=== PATIENT | female | born 1945 | race Caucasian/White ===

== ENCOUNTER → 2016-11-18 | Outpatient (CLI) | payer MEDICARE, BC ==
[~2016-11-18] MED LIST: CALCIUM CITRATE1 TA4 PO; GLUCOSAMINE & C1 CA2 PO; HYZAAR 25 MG-101 TAB PO; LUTEIN20 M1 PO; MULTI VITAMINS1 TAB PO; NATURE'S BLEND400 IU; NORVASC2.5 MG PO; OMEGA-31 SGL PO; THE MEDICINE S200 M2 PO; VITAMIN C500 MG PO; ZYRTEC 10MG10 MG PO
== END ==
LOC: MC.RAD 08:52
DX: Z12.31 Encounter for screening mammogram for malignant neoplasm of breast (principal)

== ENCOUNTER → 2017-12-15 | Outpatient (CLI) | payer MEDICARE, BC | LOC: MC.RAD 14:33 | DX: Z12.31 Encounter for screening mammogram for malignant neoplasm of breast (principal) ==

== ENCOUNTER → 2018-12-28 | Outpatient (CLI) | payer MEDICARE, BC | LOC: MC.RAD 09:37 | DX: Z12.31 Encounter for screening mammogram for malignant neoplasm of breast (principal) ==

== ENCOUNTER → 2020-01-06 | Outpatient (CLI) | payer MEDICARE, BC | LOC: MC.RAD 12:56 | DX: Z12.31 Encounter for screening mammogram for malignant neoplasm of breast (principal) ==

== ENCOUNTER → 2021-02-05 | Outpatient (CLI) | payer MEDICARE, BC | LOC: MC.RAD 12:56 | DX: Z12.31 Encounter for screening mammogram for malignant neoplasm of breast (principal) ==